=== PATIENT | male | born 2000 | race Caucasian/White ===

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

== ENCOUNTER 2022-12-10 08:53 | Emergency (ER) | payer SELFPAY ==
[2022-12-10 09:57] LABS: CORONAVIRUS COVID-19 NAA POSITIVE (NEGATIVE); INFLUENZA A NAA NEGATIVE (NEGATIVE); INFLUENZA B NAA NEGATIVE (NEGATIVE); RESPIRATORY SYNCYTIAL VIR NAA NEGATIVE (NEGATIVE)
== END 2022-12-10 12:10 | disposition home or self-care (01) ==
LOC: MW.ED 08:53
DX: U07.1 COVID-19 (principal); Z91.018 Allergy to other foods; Z91.030 Bee allergy status
CPT/HCPCS: 0241U; 99283